=== PATIENT | female | born 1980 | race Caucasian/White ===

== ENCOUNTER → 2017-12-20 14:01 | Outpatient (CLI) | payer BC, SELFPAY ==
[2017-12-20 15:46] LABS: Hematocrit 38.8 % (37-47); Hemoglobin 12.7 g/dl (12.0-15.0); Mean Corp Hgb Conc 32.7 g/gl (32-36); Mean Corpuscular Hgb 31.4 pg (27.0-32.0); Mean Corpuscular Volume 95.8 fL (81-99); Mean Platelet Vol. 10.8 fl (6.2-12.0); Platelet Count 236 K/mm3 (150-450); RBC Distribution Width CV 12.5 % (11.6-14.6); Red Blood Count 4.05 M/mm3 (4.2-5.4)
[2017-12-20 15:49] LABS: Thyroid Stim Hormone (TSH) 0.59 uIU/mL (0.358-3.74)
[2017-12-20 15:51] LABS: Scan Indicated on CBC? Y/N NO
[2017-12-25 09:50] LABS: HPV Reflexed? NOT INDICATED
== END ==
PROVIDERS: Visit Provider Obstetrics & Gynecology
DX: Z12.4 Encounter for screening for malignant neoplasm of cervix (principal); N92.4 Excessive bleeding in the premenopausal period
CPT/HCPCS: 36415; 84443; 85027; 88175; G0145

== ENCOUNTER → 2019-12-03 | Outpatient (CLI) | payer MEDICAID, SELFPAY ==
[2016-05-13 11:39] VITALS: BMI 20.2
[2019-12-08 18:25] LABS: HPV APTIMA, High Risk Negative (Negative); HPV Reflexed? YES, CHARGE PATIENT
== END | disposition home or self-care (01) ==
PROVIDERS: Visit Provider Student in an Organized Health Care Education/Training Program
DX: Z12.4 Encounter for screening for malignant neoplasm of cervix (principal)
CPT/HCPCS: 87624; 88175; G0145

== ENCOUNTER 2021-03-20 13:25 | Outpatient (CLI) | payer MEDICAID, SELFPAY ==
[2021-03-20 16:16] LABS: Follicle Stimulating Hormone 8.1 mIU/mL; Luteinizing Hormone 10.2 mIU/mL; Prolactin 14.5 ng/mL; T4 Free Direct 0.87 ng/dL (0.76-1.46); Thyroid Stim Hormone (TSH) 1.41 uIU/mL (0.358-3.74)
== END 2021-03-20 23:59 | disposition short-term general hospital (02) ==
PROVIDERS: Visit Provider Student in an Organized Health Care Education/Training Program
DX: N93.9 Abnormal uterine and vaginal bleeding, unspecified (principal)
CPT/HCPCS: 36415; 83001; 83002; 84146; 84439; 84443

== ENCOUNTER 2022-09-10 10:34 | Emergency (ER) | payer MEDICAID, SELFPAY ==
[2022-09-10 10:35] VITALS: BP 114/60; PULSE 84; RESP 18; TEMP 36.4; O2SAT 99; BMI 21.7
--- NOTE | 2022-09-10 11:36 | ED.VIS.CHEST ---
HPI History of Present Illness Chief Complaint: Chest Pain Narrative Narrative: Sent in after discussing with nursing line through [facility]. States 5 days ago had vomiting diarrhea. Since then indigestion symptoms burning in her chest when she eats. States there is no vomiting after eating. Since then has had normal stools nonbloody without any melena. Tobacco history. Denies similar symptoms in the past no history of endoscopies upper or lower. No cardiac history. No cough. No PE risk factors. Prior Similar Symptoms: No PFSH PFSH Medical History No acute medical problems Home Medications hydrocodone-acetaminophen 5-325mg 5mg-325mg 1 - 2 tab PO Q4H PRN PRN Pain ##12 05/13/16 [Rx Last Taken Unknown] pantoprazole 40 mg tablet,delayed release 40 mg PO DAILY #30 tabs 09/10/22 [Rx Last Taken Unknown] sucralfate 1 gram tablet (Carafate) 1 g PO Q6H #60 tabs 09/10/22 [Rx Last Taken Unknown] Allergy/AdvReac Type Severity Reaction Status Date / Time No Known Allergies Allergy Verified 05/13/16 11:38 Social History Smoking Status: Current every day smoker tobacco type: cigarettes ROS ROS ED Constitutional Constitutional ED: Denies chills, fever(s) or sweats Eyes Eyes: Denies change in vision ENT ENT ED: Denies dysphagia or sore throat Cardiovascular Cardiovascular: Reports chest pain; Denies leg edema, palpitations or racing heartbeat Respiratory/Chest Respiratory/Chest: Denies cough, dyspnea or dyspnea on exertion Gastrointestinal Gastrointestinal: Denies abdominal pain, diarrhea, nausea or vomiting Genitourinary Genitourinary ED: Denies dysuria, hematuria or urinary frequency Musculoskeletal Musculoskeletal: Denies back pain, extremity pain or neck pain Integumentary Denies rash or wounds Neurologic Neurologic: Denies headache(s), paresthesias or weakness EXAM Physical Exam Const Vital Signs: 09/10/22 10:35 09/10/22 11:14 09/10/22 11:45 Temperature 97.5 F L Temperature Source Temporal Pulse Rate 84 Respiratory Rate 18 Respiratory Effort Normal Non-Labored Blood Pressure 114/60 Blood Pressure Mean 78 Pulse Ox 99 Oxygen Delivery Method Room Air Room Air 09/10/22 12:21 09/10/22 12:43 09/10/22 13:32 Temperature Temperature Source Pulse Rate 55 L 53 L 68 Respiratory Rate 18 12 17 Respiratory Effort Blood Pressure 113/52 L 108/43 L 112/63 Blood Pressure Mean 72 64 79 Pulse Ox Oxygen Delivery Method Room Air Room Air Room Air 09/10/22 15:06 09/10/22 15:06 Temperature Temperature Source Pulse Rate 58 L 61 Respiratory Rate 12 11 L Respiratory Effort Blood Pressure 105/64 105/64 Blood Pressure Mean 77 Pulse Ox Oxygen Delivery Method Room Air Positive well nourished and well developed General Appearance ED: well developed and NAD HEENT Reports moist mucous membranes normocephalic and atraumatic Eyes PERRL, EOMs intact bilaterally and conjunctivae normal General Eye ED: Yes normal appearance of both eyes Neck no lymphadenopathy and supple General: Negative for tenderness Chest Wall Chest: Negative for tenderness Resp normal respiratory effort and normal air movement Effort and Inspection: symmetric chest movement; Negative for respiratory distress Cardio regular rate, regular rhythm and no murmurs Peripheral Pulses: pulses 2+ throughout GI normal to inspection, nondistended, normoactive bowel sounds and non-tender Palpation: Negative for guarding or rebound tenderness present Back/Spine no CVA tenderness and no thoracic nor lumbar tenderness Extremity normal to inspection General Extremety ED: Negative for edema or tenderness General Extremity: Negative for edema Neuro oriented x3 and no sensory deficits noted Sensorium / Orientation: awake and alert Skin no rashes or lesions noted and no wounds MDM MDM MDM Narrative Medical decision making narrative: Interventions / MDM: Differential diagnosis: Gastritis, gastric reflux Diagnosis considered but do not suspect: ACS however troponin less than 3 no ischemic EKG changes. My EKG interpretation: Sinus rate of 59, no ST or T wave changes. Imaging independently reviewed and interpreted by myself: 2 view chest x-ray chest, questionable left hilar mass versus infiltrate. CT chest with IV contrast: No acute process. This also read by radiology. External documents reviewed: N/A Test considered but not ordered:N/A ED course: She has recent concerns for gastritis symptoms with burning sensations. Cardiac work-up was negative. She is treated with Protonix and GI cocktail with improvement in symptoms. Her chest x-ray questionable hilar mass versus infiltrate she has no cough she does have tobacco history. CT chest was obtained negative for any acute findings. She is symptom-free on reevaluation. She started on pantoprazole and Carafate for symptom control. She is given follow-up with GI. Return precautions. All questions were answered. Re-evaluation: stable Disposition discussed with patient/family/significant other: Patient Case discussed with consulting clinician: N/A This note was generated with [employer] dictation software. It may contain incorrect words, spelling, and punctuation that were not noted in checking the note before signing. Lab Data Attestation: I reviewed the patient's lab results. Labs: Laboratory Results - last 24 hr 09/10/22 09/10/22 11:40 13:43 WBC 3.7 L RBC 3.59 L Hgb 11.1 L Hct 34.1 L MCV 95.0 MCH 30.9 MCHC 32.6 RDW Std Deviation 43.8 RDW Coeff of Paulette 12.6 Plt Count 198 MPV 10.4 Immature Gran % (Auto) 0.300 Neut % (Auto) 59.0 Lymph % (Auto) 25.1 Vermilion % (Auto) 13.7 H Eos % (Auto) 1.4 Baso % (Auto) 0.5 Absolute Neuts (auto) 2.2 Absolute Lymphs (auto) 0.92 Nucleated RBC % 0 Sodium 138 Potassium 3.7 Chloride 108 H Carbon Dioxide 28.0 Anion Gap 2 L BUN 9 Creatinine 0.83 Estim Creat Clear Calc 84.11 Est GFR (MDRD) Af Amer 95 Est GFR (MDRD) Non-Af 79 BUN/Creatinine Ratio 10.8 Glucose 91 Calcium 8.6 Troponin I High Sens < 3 L 4 Radiography Diagnostic Testing: Clinical Impression(s) from Imaging Studies Chest X-Ray 09/10/22 12:10 IMPRESSION: Possible infiltrate or soft tissue density in the left perihilar region. Correlation with a CT scan is recommended. Electronically Signed: Kobe Onofre MD at 12:24 EDT , Chest CT 09/10/22 13:10 IMPRESSION: Mild degree of emphysematous changes. No focal infiltrate or mass lesion is seen. Calcified granulomas in the peripheral superior segment of the right lower lobe. Electronically Signed: Kobe Onofre MD at 13:55 EDT , Discharge Plan Triage Chief Complaint: Chest Pain ED Provider: Abimael Meyers Dx/Rx/DC Orders Clinical Impression: Gastritis, Chest pain Instructions: ED Chest Pain, Noncardiac, ED Gastritis (Adult) Prescriptions: New sucralfate [Carafate] 1 gram tablet 1 g PO Q6H Qty: 60 0RF pantoprazole 40 mg tablet,delayed release (DR/EC) 40 mg PO DAILY Qty: 30 0RF No Action hydrocodone-acetaminophen 1 TABLET tablet 1 - 2 tab PO Q4H PRN PRN (Reason: Pain) Qty: 12 0RF Primary Care Provider: Care Physician,No Primary Referrals: Friend,Robin, DO [Med Staff - Active Staff] - 1-2 Weeks NOT,DEFINED [Non-Staff] - Activity Restrictions/Additional Instructions: Cardiac work-up negative. Symptoms appear to be GI related improvement with medications. Take medication as prescribed. Follow-up with GI. Return if worsening symptoms. Disposition Disposition: Home, Self Care Discharge Date/Time: 09/10/22 15:11
--- NOTE | 2022-09-10 11:45 | EKG12_ITS ---
Test Reason : CHEST PAIN Blood Pressure : / mmHG Vent. Rate : 059 BPM Atrial Rate : 059 BPM P-R Int : 138 ms QRS Dur : 082 ms QT Int : 440 ms P-R-T Axes : 076 090 068 degrees QTc Int : 435 ms Sinus bradycardia Rightward axis Low voltage QRS Borderline ECG Confirmed by OLVIN SHINE, ALIYAH ([id number]), food expeditor MARILU GARZA ([id number]) on 09/12/2022 9:24:22 AM Referred By: GILMA Confirmed By:ALIYAH BAH MD
[2022-09-10] MEDS: 0.9% Normal Saline 1,000 ML 999 ML IV (11:50)
[2022-09-10] MEDS: Mag Hydrox/Al Hydrox/Simeth 30 ML UDC PO (11:50)
[2022-09-10 11:57] LABS: Absolute Lymphocyte Count 0.92 X10^3/uL (0.83-4.51); Absolute Neutrophil Count 2.2 X10^3/uL (2.0-7.7); Basophil# 0.02 X10^3/uL; Basophil% 0.5 % (0-1); Eosinophil# 0.05 X10^3/uL; Eosinophils% 1.4 % (0-5); Hematocrit 34.1 % (37-47); Hemoglobin 11.1 g/dL (12.0-15.0); Lymphocyte # 0.92 X10^3/ul (0.83-4.51); Lymphocyte % 25.1 % (19-41); Mean Corp Hgb Conc 32.6 g/dL (32-36); Mean Corpuscular Hgb 30.9 pg (27.0-32.0); Mean Platelet Vol. 10.4 fl (6.2-12.0); Monocyte% 13.7 % (0-10); NRBC Flagged by Analyzer 0 % (0-5); Neutrophil # 2.16 X10^3/uL (2.7-7.7); Platelet Count 198 K/mm3 (150-450); RBC Distribution Width CV 12.6 % (11.6-14.6); RBC Distribution Width SD 43.8 fl (35.1-43.9); Red Blood Count 3.59 M/mm3 (4.2-5.4); White Blood Count 3.7 K/mm3 (4.4-11.0)
--- NOTE | 2022-09-10 12:10 | RAD_ITS ---
STUDY: X-RAY CHEST REASON FOR EXAM: Female, 42 years old. One week history of chest pressure. TECHNIQUE: PA and lateral views of the chest. COMPARISON: None. FINDINGS: EKG electrodes are seen. Hyperinflation. Questionable focal infiltrate and/or soft tissue density in the left perihilar region. Calcified granulomas in the right upper lobe. There is no demonstrated pleural abnormality. Normal size heart. Normal mediastinum and urben. Normal visualized pulmonary arteries. Normal visualized aortic arch and descending thoracic aorta. Normal visualized thoracic spine. Normal visualized ribs, clavicles, and shoulders. There is no demonstrated abnormality of the visualized soft tissue structures of the upper abdomen. RAD/Chest PA and Lateral IMPRESSION: Possible infiltrate or soft tissue density in the left perihilar region. Correlation with a CT scan is recommended. Electronically Signed: Kobe Onofre MD at 12:24 EDT ,
[2022-09-10 12:14] LABS: Anion Gap 2 (5-15); BUN 9 mg/dL (7-18); BUN/Creat Ratio 10.8 RATIO (10-20); Calcium,Total 8.6 mg/dL (8.5-10.1); Chloride 108 mmol/L (98-107); Creatinine, Serum 0.83 mg/dL (0.55-1.02); EST Glomerular Filtration Rate 79 mL/min (>60); Est Glom Filt Rate - Afr Amer 95 mL/min (>60); Estimated Creatinine Clearance 84.11 ml/min; Glucose 91 mg/dL (74-106); Potassium 3.7 mmol/L (3.5-5.1); Sodium Level 138 mmol/L (136-145); Troponin-I HS (w/2H Reflex) < 3 pg/mL (3.0-54.0)
[2022-09-10 12:21] VITALS: BP 113/52; PULSE 55; RESP 18
[2022-09-10 12:43] VITALS: BP 108/43; PULSE 53; RESP 12
--- NOTE | 2022-09-10 13:10 | CT_ITS ---
STUDY: CT CHEST WITH CONTRAST REASON FOR EXAM: Female, 42 years old. Chest pain -- soft tissue mass hilar? RADIATION DOSAGE (If Supplied By Facility): CTDIvol = ( 10.18 ) mGy, DLP = ( 224.41 ) mGycm TECHNIQUE: Transaxial imaging was performed following intravenous administration of IV-100 ML ISO 300. Multiplanar coronal and sagittal images were reformatted. Individualized dose optimization techniques were used for this CT. COMPARISON: Comparison is made with prior chest radiograph done earlier in the day. FINDINGS: CHEST Mild degree of emphysematous changes. Small calcified granuloma seen in the peripheral lateral superior segment of the right lower lobe. No focal infiltrate is seen. No mass lesion is present. There is no demonstrated pleural abnormality. Normal heart and pericardium. Normal mediastinum. Normal hilar regions. Normal unenhanced pulmonary arteries. Normal aorta arch and descending thoracic aorta. There are degenerative changes of the thoracic spine with subchondral sclerosis involving the inferior endplate of the T4 and superior endplate of the T5 vertebrae. This is the cause of increased density seen on the lateral chest radiograph.. There is no demonstrated abnormality of the visualized upper abdomen. CT/Chest WITH Contrast IMPRESSION: Mild degree of emphysematous changes. No focal infiltrate or mass lesion is seen. Calcified granulomas in the peripheral superior segment of the right lower lobe. Electronically Signed: Kobe Onofre MD at 13:55 EDT ,
[2022-09-10 13:32] VITALS: BP 112/63; PULSE 68; RESP 17
[2022-09-10 13:47] LABS: Reflex Troponin-HS? (from REC) Y
[2022-09-10 14:10] LABS: Troponin-I HS 4 pg/mL (3.0-54.0)
[2022-09-10 15:06] VITALS: BP 105/64; PULSE 58; PULSE 61; RESP 11; RESP 12
== END 2022-09-10 15:11 | disposition home or self-care (01) ==
PROVIDERS: Emergency Provider Emergency Medicine; Visit Provider Emergency Medicine
DX: K29.70 Gastritis, unspecified, without bleeding (principal); R07.9 Chest pain, unspecified; F17.210 Nicotine dependence, cigarettes, uncomplicated
CPT/HCPCS: 71046; 71260; 80048; 84484; 85025; 93005; 96365; 99285; J7030; Q9967; A4216